=== PATIENT | female | born 1950 | race Caucasian/White ===

== ENCOUNTER → 2017-01-15 | Outpatient (CLI) | payer MEDICARE ==
[~2017-01-15] MED LIST: ACET325T14 PO; APIX5TAB PO; ATOR10TA9 PO; OMNIPAQUE 350 MG/ML, 150 ML BOTTLE ONE; SOTA80TA18 PO
[2017-01-15 16:01] LABS: HEMATOCRIT 40.7 % (34.6-47.8); HEMOGLOBIN 13.6 g/dL (11.7-16.4); WHITE BLOOD COUNT 6.5 x10^3/uL (3.4-10)
[2017-01-15 16:07] LABS: BLOOD UREA NITROGEN 21 mg/dL (7-18)
[2017-01-15 16:10] LABS: ASPARTATE AMINO TRANSFERASE 32 U/L (15-37)
== END | disposition home or self-care (01) ==
LOC: CFH 12:04
PROVIDERS: ATTEND Internal Medicine Cardiovascular Disease
DX: Z01.811 Encounter for preprocedural respiratory examination (principal); I48.91 Unspecified atrial fibrillation
CPT/HCPCS: 36415; 71020; 75572; 80053; 82565; 85025; 85610; 85730; Q9967

== ENCOUNTER 2017-02-22 08:40 | Day surgery (SDC) | payer MEDICARE ==
[~2017-02-22] VITALS: Ht 170.2 cm; Wt 59.1 kg
[~2017-02-22 08:40] MED LIST changes: -OMNIPAQUE 350 MG/ML, 150 ML BOTTLE ONE
[2017-02-22 09:31] VITALS: BP 97/59
[2017-02-22] MEDS ORDERED: ATOR10TA9 PO (10:19)
[2017-02-22] MEDS ORDERED: SOTA120T14 PO (10:19)
[2017-02-22] MEDS ORDERED: APIX5TAB PO (10:19)
[2017-02-22] MEDS ORDERED: ASPI-621 PO (10:19)
[2017-02-22 10:33] LABS: BLOOD UREA NITROGEN 21 mg/dL (7-18)
[2017-02-22] MEDS ORDERED: PROPOFOL 10 MG/ML, 20ML ONE (11:47)
[2017-02-22] MEDS ORDERED: ACETAMINOPHEN 325 MG TABLET PO PRN (12:00)
[2017-02-22] MEDS ORDERED: SOTALOL 120MG TABLET PO SCH (12:00)
[2017-02-22] MEDS ORDERED: ASPIRIN 81 MG TABLET EC PO SCH (12:00)
[2017-02-22] MEDS ORDERED: APIXABAN 5 MG TABLET PO SCH (12:00)
[2017-02-22] MEDS ORDERED: SOTA80TA PO (12:21)
[2017-02-22] MEDS ORDERED: ATORVASTATIN 10 MG TABLET PO SCH (21:00)
== END 2017-02-22 13:42 ==
LOC: CACL 08:40
PROVIDERS: ATTEND Internal Medicine Cardiovascular Disease
DX: I48.91 Unspecified atrial fibrillation (principal); Z79.82 Long term (current) use of aspirin
CPT/HCPCS: 36415; 80048; 92960; 93005; J2704